=== PATIENT | male | born 2000 | race Caucasian/White ===

== ENCOUNTER 2020-01-08 21:32 | Emergency (ER) | payer OTHER ==
[~2020-01-08] VITALS: Ht 172.7 cm; Wt 102.1 kg
--- NOTE | 2020-01-08 21:38 | NUR ---
PT TAKEN TO BED 10
[2020-01-08 21:45] VITALS: BP 151/68
--- NOTE | 2020-01-08 22:10 | NUR ---
19 Y/O MALE PRESENTS TO ER WITH C/O SHARP CHEST & STOMACH PAIN X 1 MONTH. 4/10 PAIN. PT STATES HE HAS HAD LEFT STERNAL CHEST, AND STOMACH PAIN WITH NAUSEA, DIZZINESS, INTERMITTENT SOB. DENIES INJURY, D/V, COUGH, LOSS OF TASTE, AND SMELL, HEADACHES, OR VISUAL CHANGES. F.A.C.E.S. NEG. R/R EQUAL, AND UNLABORED. SIDE RAIL X1, BED IN LOW POSITION, WILL CONTINUE TO MONITOR. NKDA PMH: ANXIETY; CARDIAC DISORDER UNSPECIFIED
--- NOTE | 2020-01-08 22:59 | NUR ---
XRAY AT BEDSIDE.
--- NOTE | 2020-01-08 23:59 | NUR ---
PT APPEARS TO BE SLEEPING, R/R EQUAL, AND UNLABORED. NO DISTRESS NOTED, VSS. SIDE RAIL X1, BED IN LOW POSITION WILL CONTINUE TO MONITOR.
[2020-01-09 00:32] VITALS: BP 125/57
--- NOTE | 2020-01-09 00:33 | NUR ---
Patient discharged with v/s stable. Written and verbal after care instructions given and explained. Patient verbalized understanding. Ambulatory with steady gait. All questions addressed prior to discharge. Advised to follow up with PMD.
== END 2020-01-09 00:33 | disposition home or self-care (01) ==
LOC: MED 21:32
DX: R07.9 Chest pain, unspecified (principal); R03.0 Elevated blood-pressure reading, without diagnosis of hypertension; F41.9 Anxiety disorder, unspecified; F12.10 Cannabis abuse, uncomplicated
CPT/HCPCS: 71045; 99283; Q0092

== ENCOUNTER 2020-01-26 04:50 | Emergency (ER) | payer OTHER ==
[~2020-01-26] VITALS: Ht 170.2 cm; Wt 98.4 kg
[2020-01-26 04:54] VITALS: BP 137/81
--- NOTE | 2020-01-26 05:01 | NUR ---
PT AMBULATED TO BED 03 WITH STEADY GAIT.
[2020-01-26] MEDS ORDERED: ONDANSETRON 4 MG ODT PO ONE (05:05)
--- NOTE | 2020-01-26 05:32 | NUR ---
PATIENT PRESENTS TO ED WITH COMPLAINT OF WEAKNESS . PT STATES HE HAS BEEN TAKING CAREOF HIS GIRLFRIEND WHO TESTED POSITIVE FOR COVID FOR THE LAST 2 DAYS AND TODAY FELT WEAK, HAS BEEN FEELING NAUSEOUS AND VOMITD ONCE. SKIN IS PINK/WARM/DRY; AAOX4 WITH EVEN AND STEADY GAIT; LUNGS CLEAR BL; HR EVEN AND REGULAR; PT DENIES ANY FEVER, CP, SOB, OR COUGH AT THIS TIME; PATIENT STATES PAIN OF 0/10 AT THIS TIME; VSS; PATIENT POSITIONED FOR COMFORT; HOB ELEVATED; BEDRAILS UP X2; BED DOWN. ER MD MADE AWARE OF PT STATUS.
--- NOTE | 2020-01-26 06:11 | NUR ---
PT REFUSED RAPID COVID TEST
[2020-01-26 06:21] VITALS: BP 137/81
== END 2020-01-26 06:15 | disposition home or self-care (01) ==
LOC: MED 04:50
DX: F41.9 Anxiety disorder, unspecified (principal); R11.0 Nausea
CPT/HCPCS: 99283; Q0162

== ENCOUNTER 2020-01-27 13:27 | Emergency (ER) | payer OTHER ==
[~2020-01-27] VITALS: Ht 170.2 cm; Wt 98.9 kg
[2020-01-27 13:44] VITALS: BP 125/58
--- NOTE | 2020-01-27 13:50 | NUR ---
PT C/O INTERMITTENT PRESURE RIGHT STERNAL CP OCCASIONALY RADIATING TO POSTERIOR NECK ACCOMPANIED BY NAUSEA FOR ONE MONTH, WORSENED LAST NIGHT. EXACERBATED BY DEEP BREATHING OR LAUGHING. DENIES VOMITING, COUGH, SOB, FEVER, ABDOMINAL PAIN. PAIN INTENSITY 7/10 WITH DEEP BREATHING OR COUGHING.
--- NOTE | 2020-01-27 14:03 | NUR ---
Dr. Hidalgo evaluating pt at bedside.
[2020-01-27] MEDS ORDERED: KETOROLAC 60 MG/2 ML VIAL IM ONE ×2 (14:05→14:06)
[2020-01-27 15:03] VITALS: BP 110/51
--- NOTE | 2020-01-27 15:03 | NUR ---
Patient discharged with v/s stable. Written and verbal after care instructions given and explained. Patient alert, oriented and verbalized understanding of instructions. Ambulatory with steady gait. All questions addressed prior to discharge. ID band removed. Patient advised to follow up with PMD. Rx of Prilosec, Atarax, and Motrin given. Patient educated on indication of medication including possible reaction and side effects. Opportunity to ask questions provided and answered.
== END 2020-01-27 15:03 | disposition home or self-care (01) ==
LOC: MED 13:27
DX: R07.9 Chest pain, unspecified (principal); F12.90 Cannabis use, unspecified, uncomplicated; Q22.8 Other congenital malformations of tricuspid valve
CPT/HCPCS: 93005; 96372; 99283; J1885

== ENCOUNTER 2020-04-12 18:24 | Emergency (ER) | payer OTHER ==
[~2020-04-12] VITALS: Ht 170.2 cm; Wt 95.3 kg
[2020-04-12 18:36] VITALS: BP 156/73
[2020-04-12 19:29] LABS: BASOPHILS % (AUTO) 0.2 % (0.0-2.0); EOSINOPHILS # (AUTO) 0.1 K/uL (0-0.4); EOSINOPHILS % (AUTO) 0.5 % (0.0-4.0); HEMOGLOBIN 15.5 g/dL (12.0-18.0); LYMPHOCYTES # (AUTO) 2.1 K/uL (2.0-11.5); LYMPHOCYTES % (AUTO) 19.9 % (20.5-51.1); MEAN CORPUSCULAR HEMOGLOBIN 30 pg (27-31); MEAN CORPUSCULAR HGB CONC 34 g/dL (33-37); MEAN CORPUSCULAR VOLUME 88.5 fL (80-94); MONOCYTES # (AUTO) 0.6 K/uL (0.8-1.0); MONOCYTES % (AUTO) 6.1 % (1.7-9.3); NEUTROPHILS # (AUTO) 7.6 K/uL (1.8-7.7); NEUTROPHILS % (AUTO) 73.3 % (42.2-75.2); PLATELET COUNT (AUTO) 276 K/uL (140-450); RED CELL DISTRIBUTION WIDTH 13.3 % (11.6-13.7); WHITE BLOOD COUNT (AUTO) 10.3 K/uL (4.5-11.0)
[2020-04-12 20:00] LABS: ALBUMIN 4.2 g/dL (3.4-5.0); CARBON DIOXIDE 30.1 mmol/L (21-32); CREATININE 1.1 mg/dL (0.6-1.3); POTASSIUM 4.1 mmol/L (3.5-5.1); THYROID STIMULATING HORMONE 1.55 uIU/mL (0.34-3.74); TOTAL BILIRUBIN 0.3 mg/dL (0.0-1.0)
--- NOTE | 2020-04-12 20:24 | NUR ---
PT AMBUALTED FROM [facility] TO [facility]
[2020-04-12 20:40] VITALS: BP 148/73
== END 2020-04-12 20:40 | disposition home or self-care (01) ==
LOC: MED 18:24
DX: R00.2 Palpitations (principal); F41.9 Anxiety disorder, unspecified
CPT/HCPCS: 36415; 71045; 80053; 84443; 84484; 85025; 93005; 99285